=== PATIENT | male | born 1935 | race Caucasian/White ===

== ENCOUNTER 2017-03-09 11:36 | Day surgery (SDC) | payer MEDICARE, OTHER ==
[~2017-03-09] VITALS: Ht 175.3 cm; Wt 69.0 kg
[~2017-03-09 11:36] MED LIST: ASPI-496 PO; FINA5TAB4 PO; LATA2.5D3 EACHEYE; TAMS0.4C2 PO; TIMO2.5D3 EACHEYE
[2017-03-09] MEDS ORDERED: LACTATED RINGERS 1,000 ML IV SCH (11:52)
[2017-03-09 12:00] VITALS: BP 100/65
[2017-03-09] MEDS ORDERED: DEXAMETHASONE 4 MG/ML, 1ML ONE (14:09)
[2017-03-09] MEDS ORDERED: PROPOFOL 10 MG/ML, 20ML ONE (14:09)
[2017-03-09] MEDS ORDERED: EPHEDRINE 50 MG/ML, 1ML ONE (14:09)
[2017-03-09] MEDS ORDERED: SUCCINYLCHOLINE 20 MG/ML, 10ML ONE (14:09)
[2017-03-09] MEDS ORDERED: ONDANSETRON 2MG/ML, 2ML ONE (14:09)
[2017-03-09] MEDS ORDERED: EPHEDRINE 50 MG/ML, 1ML IVPush PRN (14:30)
[2017-03-09] MEDS ORDERED: LABETALOL 5MG/ML, 20ML IV PRN (14:30)
[2017-03-09] MEDS ORDERED: hydrALAzine 20 MG/ML, 1ML IV PRN (14:30)
[2017-03-09] MEDS ORDERED: HYDROmorphone 1 MG/ML, 1ML IV PRN (14:30)
[2017-03-09] MEDS ORDERED: PROMETHAZINE 25 MG/ML, 1ML IV PRN (14:30)
[2017-03-09] MEDS ORDERED: ONDANSETRON 2MG/ML, 2ML IVPush PRN (14:30)
[2017-03-09] MEDS ORDERED: OXYcodone 5 MG/5 ML ORAL.SOL UDC PO PRN (14:30)
[2017-03-09] MEDS ORDERED: HYDROcodone/APAP 7.5-325MG/15ML UDC PO PRN (14:30)
[2017-03-09] MEDS ORDERED: FENTANYL PF 100 MCG/2ML IV PRN (14:30)
[2017-03-09] MEDS ORDERED: ACETAMINOPHEN 325 MG TABLET PO PRN (14:30)
== END 2017-03-09 17:55 | disposition home or self-care (01) ==
LOC: OUT 11:36
PROVIDERS: ATTEND Internal Medicine Gastroenterology
DX: K86.89 Other specified diseases of pancreas (principal); Z46.59 Encounter for fitting and adjustment of other gastrointestinal appliance and device; E78.00 Pure hypercholesterolemia, unspecified; K76.0 Fatty (change of) liver, not elsewhere classified; N40.0 Benign prostatic hyperplasia without lower urinary tract symptoms; Z72.89 Other problems related to lifestyle
CPT/HCPCS: 43237; 43239; 43274; 74329; 88305; 93005; C1769; C2625; J0330; J1100; J2405; J2704

== ENCOUNTER 2017-03-30 06:31 | Day surgery (SDC) | payer MEDICARE, OTHER ==
[~2017-03-30] VITALS: Ht 175.3 cm; Wt 58.0 kg
[2017-03-30] MEDS ORDERED: LACTATED RINGERS 1,000 ML IV SCH (07:13)
[2017-03-30 07:14] VITALS: BP 114/75
[2017-03-30] MEDS ORDERED: FENTANYL PF 100 MCG/2ML ONE (08:16)
[2017-03-30] MEDS ORDERED: CIPROFLOXACIN/PMX 400MG/200ML 200 ML ONE (08:46)
[2017-03-30] MEDS ORDERED: METOCLOPRAMIDE 5 MG/ML, 2ML IV PRN (09:00)
[2017-03-30] MEDS ORDERED: hydrALAzine 20 MG/ML, 1ML IV PRN (09:00)
[2017-03-30] MEDS ORDERED: MEPERIDINE/PF 25MG/0.5ML IVPush PRN (09:00)
[2017-03-30] MEDS ORDERED: FENTANYL PF 100 MCG/2ML IV PRN (09:00)
[2017-03-30] MEDS ORDERED: LABETALOL 5MG/ML, 20ML IV PRN (09:00)
[2017-03-30] MEDS ORDERED: HYDROmorphone 1 MG/ML, 1ML IV PRN (09:00)
[2017-03-30] MEDS ORDERED: ACETAMINOPHEN 325 MG TABLET PO PRN (09:00)
[2017-03-30] MEDS ORDERED: ONDANSETRON 2MG/ML, 2ML IVPush PRN (09:00)
[2017-03-30] MEDS ORDERED: OXYcodone 5 MG/5 ML ORAL.SOL UDC PO PRN (09:00)
[2017-03-30] MEDS ORDERED: MIDAZOLAM 1 MG/ML, 2ML IV PRN (09:00)
[2017-03-30] MEDS ORDERED: PROMETHAZINE 25 MG/ML, 1ML IV PRN (09:00)
[2017-03-30] MEDS ORDERED: EPHEDRINE 50 MG/ML, 1ML ONE (10:57)
[2017-03-30] MEDS ORDERED: SUCCINYLCHOLINE 20 MG/ML, 10ML ONE (10:57)
[2017-03-30] MEDS ORDERED: ROCURONIUM 10 MG/ML ONE (10:57)
[2017-03-30] MEDS ORDERED: DEXAMETHASONE 4 MG/ML, 1ML ONE (10:57)
[2017-03-30] MEDS ORDERED: ONDANSETRON 2MG/ML, 2ML ONE (10:57)
[2017-03-30] MEDS ORDERED: PROPOFOL 10 MG/ML, 20ML ONE (10:57)
[2017-03-30] MEDS ORDERED: OMNIPAQUE 350 MG/ML, 50 ML BOTTLE ONE (10:59)
[2017-03-30 12:58] LABS: ANA SCREEN POSITIVE (Negative)
== END 2017-03-30 11:35 | disposition home or self-care (01) ==
LOC: OUT 06:31
PROVIDERS: ATTEND Internal Medicine Gastroenterology
DX: K83.1 Obstruction of bile duct (principal); K83.0 Cholangitis; E78.5 Hyperlipidemia, unspecified; Z87.01 Personal history of pneumonia (recurrent); N40.0 Benign prostatic hyperplasia without lower urinary tract symptoms; Z72.89 Other problems related to lifestyle
CPT/HCPCS: 36415; 43261; 43277; 74328; 83516; 86038; 86039; 88104; 88112; C1725; C1769; J0330; J0744; J1100; J2405; J2704; J3010; J7120; Q9967